=== PATIENT | female | born 1995 | race Caucasian/White ===

== ENCOUNTER 2024-02-24 19:19 | Emergency (ER) | payer BC, MEDICAID, OTHER ==
[~2024-02-24] VITALS: Ht 172.7 cm; Wt 83.0 kg
[2024-02-24 20:40] VITALS: BP 130/82; PULSE 74; RESP 17; TEMP 98.1; O2SAT 98
== END 2024-02-24 20:42 | disposition home or self-care (01) ==
LOC: ER 19:21
DX: H66.92 Otitis media, unspecified, left ear (principal)
CPT/HCPCS: 99282